=== PATIENT | female | born 1975 | race Caucasian/White ===

== ENCOUNTER 2016-12-01 21:17 | Inpatient (IN) | payer BC, OTHER ==
[~2016-12-01] VITALS: Ht 165.1 cm; Wt 60.3 kg
[2016-12-01 21:52] VITALS: BP 116/76
--- NOTE | 2016-12-01 22:01 | NUR ---
Erin brunson in [facility] - 12/01/16 at 2202 by [place] PT TAKEN TO BED 4
--- NOTE | 2016-12-01 22:02 | NUR ---
PT TAKEN TO BED 8
--- NOTE | 2016-12-01 22:07 | NUR ---
PT MOVED TO BED 3
[2016-12-01] MEDS ORDERED: NACL 0.9% 1,000 ML IV SCH (22:09)
--- NOTE | 2016-12-01 22:22 | NUR ---
PATIENT PRESENTS TO ED WITH RT SIDED FACIAL NUMBNESS . PT STATES SHE ALSO IS CURRENTLY EXPERIENCING MEDIAL ABD PAIN SINCE 1200 TODAY . DENIES N/V/D; SKIN IS PINK/WARM/DRY; AAOX4 WITH EVEN AND STEADY GAIT; LUNGS CLEAR BL; HR EVEN AND REGULAR; PT DENIES ANY FEVER, CP, SOB, OR COUGH AT THIS TIME; PATIENT STATES PAIN OF 5/10 AT THIS TIME; VSS; PATIENT POSITIONED FOR COMFORT; HOB ELEVATED; BEDRAILS UP X2; BED DOWN. ER MD MADE AWARE OF PT STATUS. AT BEDSIDE
--- NOTE | 2016-12-01 22:44 | NUR ---
PT TAKEN TO CT
[2016-12-01] MEDS ORDERED: ZOLOFT50 MG PO (22:48)
[2016-12-01] MEDS ORDERED: PEPCID20 MG PO (22:48)
--- NOTE | 2016-12-01 22:52 | NUR ---
PT RETURN FROM CT
[2016-12-02] MEDS ORDERED: HYDROmorphone 1 MG/ML AMP IVP ONE (00:35)
[2016-12-02] MEDS ORDERED: ONDANSETRON 4 MG/2 ML VIAL IVP ONE (00:35)
[2016-12-02] MEDS ORDERED: ACETAMINOPHEN 325 MG TAB PO PRN (02:45)
[2016-12-02] MEDS ORDERED: ONDANSETRON 4 MG/2 ML VIAL IVP PRN (02:45)
[2016-12-02] MEDS ORDERED: POTASSIUM CHLORIDE 10 MEQ TABER PO SCH (02:50)
--- NOTE | 2016-12-02 03:05 | NUR ---
Patient will be admitted to care of DR. PATINO. Admited to TELE. Will go to room 120A. Belongings list completed. Report to LEANDRO LYONS.
--- NOTE | 2016-12-02 03:14 | NUR ---
PT ARRIVED ON UNIT IN STABLE CONDITION. NO SOB, NO SIGNS OF DISTRESS. PT IS AOX4, AMBULATORY. IV TO LT AC 22G PATENT, ASYMPTOMATIC, INTACT, SALINE LOCKED. PLACED PT ON FALL PRECAUTIONS DUE TO C/O DIZZINESS. ORIENTED PT TO ROOM AND UNIT. AT BEDSIDE. VS STABLE ON ROOM AIR. SKIN IS INTACT. PT DENIES PAIN AT THIS TIME. PLAN OF CARE DISCUSSED WITH PT AND . SAFETY MEASURES IN PLACE. CALL LIGHT WITHIN REACH. WILL CONTINUE TO MONITOR.
--- NOTE | 2016-12-02 03:22 | NUR ---
Pt report given to LEANDRO LYONS. Transfer of care at this time.
[2016-12-02 03:51] VITALS: BP 114/63
--- NOTE | 2016-12-02 07:10 | NUR ---
ENDORSED PT IN STABLE CONDITION TO LEANDRO SMITH ALL NEEDS HAVE BEEN MET AT THIS TIME.
--- NOTE | 2016-12-02 07:40 | NUR ---
DR. PATINO AT BEDSIDE AT THIS TIME
[2016-12-02 07:55] VITALS: BP 110/67
--- NOTE | 2016-12-02 07:58 | NUR ---
RECEIVED PT LYINH IN BED Addendum: 12/02/16 at 0803 by Radha Gonzáles RN ERROR SAVANNA PAK
--- NOTE | 2016-12-02 07:59 | NUR ---
RECEIVED PT LYING IN BED PT AAO, NO C/O PAIN BUT VERBALIZED I HAVE PRESSURE ON THE BACK OF MY HEAD AND I FEEL TIRED,, NO SOB NOTED, SKIN WARM TO TOUCH RESP. EVEN AND UNLABORED, NO DISTRESS NOTED, FALL RISK, VITAL SIGN STABLE, INFORMED DR. CONTE, NEED DIET ORDER,
[2016-12-02] MEDS: SERTRALINE 50 MG TAB PO SCH (09:00)
--- NOTE | 2016-12-02 09:02 | NUR ---
TALKED TO DR. MONTIEL IF PT CAN EAT NOW PER MD KEEP PT NPO AND MAY GIVE APPLE SAUCE FOR MED, DR. FRAUSTO AT BEDSIDE AT THIS TIME
--- NOTE | 2016-12-02 09:05 | NUR ---
PATIENT HAS BEEN SCREENED AND CATEGORIZED MODERATE NUTRITION RISK. PATIENT WILL BE SEEN WITHIN 3-5 DAYS OF ADMISSION. 12/04/16-12/06/[address]
[2016-12-02] MEDS: ASPIRIN 81 MG TAB.CHEW PO SCH (09:23)
[2016-12-02] MEDS: DOCUSATE SODIUM 100 MG GELCAP PO SCH (09:23)
[2016-12-02] MEDS: ATORVASTATIN 20 MG TAB PO SCH (09:24)
[2016-12-02] MEDS: FAMOTIDINE 20 MG TAB PO SCH (09:25)
--- NOTE | 2016-12-02 10:35 | NUR ---
REPORT GIVEN TO CESAR Addendum: 12/02/16 at 1036 by Radha Gonzáles RN PT WITH PO0R APPETITE AT THIS TIME ABLE TO EAT BANANA, AND DRINK 2 CUP OF JUICE
--- NOTE | 2016-12-02 10:39 | NUR ---
RECEIVED REPORT FROM LEANDRO SMITH. PT RESTING IN BED. AAOX4. NO S/S OF ACUTE DISTRESS. IV SITE PATENT AND INTACT. NO DEFICITS NOTED ON ASSESSMENT. PT DENIES PAIN. CALL LIGHT WITHIN REACH. SAFETY MEASURES ENSURED. WILL CONTINUE TO MONITOR.
[2016-12-02] MEDS ORDERED: LORazepam 2 MG/ML VIAL IVP PRN (10:55)
--- NOTE | 2016-12-02 12:03 | NUR ---
SEIZURE PRECAUTIONS IN PLACE. PT RESTING IN BED. PT STATES PAIN IS 8/10 PRESSURE TO BACK SIDE OF HEAD. NO S/S OF ACUTE DISTRESS. WILL MEDICATE ORDERED. WILL CONTINUE OT MONITOR.
[2016-12-02] MEDS: MORPHINE SULFATE 2 MG/ML SYR IVP PRN (12:13)
--- NOTE | 2016-12-02 12:34 | NUR ---
CM NOTE INITIAL REVIEW FAXED TO [facility] / FAX# [phone], ATTN: SON #[phone]
--- NOTE | 2016-12-02 14:23 | NUR ---
PT RESTING IN BED. NO S/S OF ACUTE DISTRESS. PT DENIES PAIN. CALL LIGHT WITHIN REACH. SAFETY MEASURES ENSURED. WILL CONTINUE TO MONITOR.
[2016-12-02 16:00] VITALS: BP 110/62
--- NOTE | 2016-12-02 17:19 | NUR ---
PT RESTING IN BED. NO S/S OF ACUTE DISTRESS. PT DENIES PAIN. CALL LIGHT WITHIN REACH. WILL CONTINUE TO MONITOR.
--- NOTE | 2016-12-02 19:10 | NUR ---
RECEIVED REPORT FROM LEANDRO GUERRERO AT BEDSIDE. INITIAL ASSESSMENT COMPLETED. PT AAOX4. PT AMBULATES. PT'S SKIN INTACT. PT HAS IV TO LEFT AC G 22 SL. ORIENTED PT TO ROOM AND SURROUNDINGS AND USE OF CALL LIGHT. EXPLAINED PLAN OF CARE TO PT AND SHE VERBALIZES UNDERSTANDING. PT ON SEIZURE/SAFETY PRECAUTIONS WILL CONTINUE TO MONITOR PT.
--- NOTE | 2016-12-02 19:34 | NUR ---
ENDORSED PLAN OF CARE TO NIGHT RN
--- NOTE | 2016-12-02 20:20 | NUR ---
PT HAS SCDS ON. CALL LIGHT WITHIN REACH, WILL CONTINUE TO MONITOR PT.
--- NOTE | 2016-12-02 21:20 | NUR ---
PT REQUESTING SNACK AND A CLEAN GOWN. PROVIDED WITH PT NEEDS. WILL CONTINUE TO MONITOR PT.
--- NOTE | 2016-12-02 23:05 | NUR ---
PT SLEEPING AT THIS TIME, NO SIGNS OF DISTRESS NOTED. WILL CONTINUE TO MONITOR PT.
[2016-12-03] VITALS: BP 112/72
--- NOTE | 2016-12-03 00:45 | NUR ---
PT AMBULATED TO THE RESTROOM WITH STEADY GAIT. PT DENIES ANY PAIN. WILL CONTINUE TO MONITOR PT.
--- NOTE | 2016-12-03 03:34 | NUR ---
PT SLEEPING AT THIS TIME. NO SIGNS OF DISTRESS/DISCOMFORT AT THIS TIME, WILL CONTINUE TO MONITOR PT.
--- NOTE | 2016-12-03 05:40 | NUR ---
PT COMPLAINING OF HEADACHE 05/13. VS: BP 132/75, HR 79, 02 SAT 99%, T 98.5, R 20. WILL MEDICATE ORDERED.
[2016-12-03] MEDS: MORPHINE SULFATE 2 MG/ML SYR IVP PRN (05:44)
--- NOTE | 2016-12-03 07:10 | NUR ---
ENDORSED PT IN STABLE CONDITION TO LEANDRO ALONSO FOR CONTINUITY OF CARE.
--- NOTE | 2016-12-03 07:11 | NUR ---
ASSUMED CONTINUITY OF CARE. NO SIGNS AND SYMPTOMS OF ACUTE DISTRESS NOTICED. INITIAL ASSESSMENT DONE. PT. -TREVIN ON BEDSIDE. EXPLAINED DIAGNOSIS, PLAN OF CARE, PAIN MANAGEMENT TEACHING, USE OF CALL LIGHT/BED/TV/BATHROOM. VERBALIZED UNDERSTANDING. CALL LIGHT WITHIN REACH
[2016-12-03 08:00] VITALS: BP 100/58
[2016-12-03] MEDS ORDERED: APAP/BUTAL/CAFF 325/50/40 MG 1 TAB PO PRN (08:25)
[2016-12-03] MEDS: ASPIRIN 81 MG TAB.CHEW PO SCH (08:59)
[2016-12-03] MEDS: DOCUSATE SODIUM 100 MG GELCAP PO SCH (08:59)
[2016-12-03] MEDS: FAMOTIDINE 20 MG TAB PO SCH (08:59)
[2016-12-03] MEDS: ATORVASTATIN 20 MG TAB PO SCH (08:59)
[2016-12-03] MEDS: SERTRALINE 50 MG TAB PO SCH (09:00)
--- NOTE | 2016-12-03 11:00 | NUR ---
EXPLAINED PT. AND PT. -TREVIN ABOUT TIA TEACHING. PT. AND PT. -TREVIN VERBALIZED UNDERSTANDING.
[2016-12-03 11:39] VITALS: BP 114/60
[2016-12-03] MEDS: HYDROcodone/APAP 7.5/325 MG 1 TAB PO PRN ×2 (11:39→19:32)
--- NOTE | 2016-12-03 11:45 | NUR ---
CM NOTE CONCURRENT REVIEW FAXED TO [facility] / FAX# [phone], ATTN: SON #[phone]
--- NOTE | 2016-12-03 11:48 | NUR ---
TOPHER Enriquez/ [facility] [place] REF[facility] FOR OUTPATIENT MENTAL HEALTH. Addendum: 12/03/16 at 1249 by Azar Magallon RN PER SON, OUTPATIENT REFERRAL TO [facility] - [phone] Addendum: 12/03/16 at 1410 by Azar Magallon RN information has been included in discharge summary.
[2016-12-03 16:00] VITALS: BP 109/72
--- NOTE | 2016-12-03 19:10 | NUR ---
RECEIVED REPORT FROM LEANDRO ALONSO AT BEDSIDE. INITIAL ASSESSMENT COMPLETED. PT AAOX4. PT AMBULATES. PT'S SKIN INTACT. PT HAS IV TO LEFT AC G 22 SL. ASYMPTOMATIC, PATENT AND INTACT. ORIENTED PT TO ROOM AND SURROUNDINGS AND USE OF CALL LIGHT. EXPLAINED PLAN OF CARE TO PT AND SHE VERBALIZES UNDERSTANDING. SISTER AT BEDSIDE. VS STABLE, PT COMPLAINING OF HEADACHE /. WILL MEDICATE ORDERED. PT ON SEIZURE/SAFETY PRECAUTIONS WILL CONTINUE TO MONITOR PT.
--- NOTE | 2016-12-03 19:12 | NUR ---
BEDSIDE REPORT GIVEN TO NATASHA BURGESS. IN STABLE CONDITION.
--- NOTE | 2016-12-03 19:30 | NUR ---
PT COMPLAINING OF HEADACHE 03/13. PT REQUESTING NORCO. VS WITHIN NORMAL RANGE. WILL MEDICATE ORDERED.
--- NOTE | 2016-12-03 21:40 | NUR ---
PT AMBULATED TO THE RESTROOM WITH STEADY GAIT. PT REQUESTING A CLEAN GOWN. WILL PROVIDE PT'S NEEDS AND WILL CONTINUE TO MONITOR PT.
--- NOTE | 2016-12-03 23:37 | NUR ---
CHECKED ON PT. PT'S VS STABLE. NO SIGNS OF DISTRESS OR DISCOMFORT NOTED. WILL CONTINUE TO MONITOR PT.
[2016-12-04] VITALS: BP 128/77
--- NOTE | 2016-12-04 01:03 | NUR ---
PT STATED THAT SHE HAS TROUBLE FALLING ASLEEP. VS ARE STABLE, WILL CONTINUE TO MONITOR PT.
--- NOTE | 2016-12-04 02:34 | NUR ---
PT STATED THAT SHE IS THIRSTY, WILL PROVIDE WITH WATER. WILL CONTINUE TO MONITOR PT.
--- NOTE | 2016-12-04 04:36 | NUR ---
PT AMBULATED TO THE RESTROOM WITH STEADY GAIT. NO SIGNS OF DISCOMFORT NOTED. PT STATED THAT SHE FEELS ANXIOUS AT TIMES. SHE STATED THAT SHE WENT TO [facility] FOR [facility] AND SINCE SHE GOT IN THE PLANE THAT TIME, SHE HAS BEEN FEELING EPISODES OF ANXIETY. WILL CONTINUE TO MONITOR PT.
--- NOTE | 2016-12-04 05:30 | NUR ---
PT VERY TALKATIVE AT THIS MOMENT. SHE IS TALKING ABOUT HER SONS. PT SEEMS/APPEARS TO BE FEELING LONELY. WILL CONTINUE TO MONITOR PT.
--- NOTE | 2016-12-04 07:15 | NUR ---
ENDORSED PT IN STABLE CONDITION TO LEANDRO ROMERO FOR CONTINUITY OF CARE.
--- NOTE | 2016-12-04 07:16 | NUR ---
RECEIVED PT FROM THE NIGHTSHIFT NURSE AT BEDSIDE. PT IS AWAKE AND ORIENTED. PT IS A 41 Y/O FEMALE HERE FOR TIA. SHE HAS A TOWEL ON HER R SIDE OF FACE. SHE C/O A HEADACHE. WILL BE BACK TO DO HER V/S. NOTED THE IV ON HE L AC 22G SL. NO FLUIDS AT THIS TIME.
[2016-12-04 08:00] VITALS: BP 107/69
--- NOTE | 2016-12-04 08:05 | NUR ---
V/S WITHIN NORMAL RANGE. SPOUSE AT BEDSIDE. PT IS STILL C/O OF PAIN. WILL BE BACK WITH MORNING MORNING MEDS.
[2016-12-04] MEDS ORDERED: KETOROLAC 30 MG/ML VIAL IVP SCH (08:30)
[2016-12-04] MEDS: ASPIRIN 81 MG TAB.CHEW PO SCH (08:33)
[2016-12-04] MEDS: FAMOTIDINE 20 MG TAB PO SCH (08:33)
[2016-12-04] MEDS: DOCUSATE SODIUM 100 MG GELCAP PO SCH (08:34)
[2016-12-04] MEDS: ATORVASTATIN 20 MG TAB PO SCH (08:34)
[2016-12-04] MEDS: SERTRALINE 50 MG TAB PO SCH (08:34)
--- NOTE | 2016-12-04 08:35 | NUR ---
PT TOLERATED HER MEDS WELL. GAVE HER TORADOL ORDERED. PT STATED SHE IS FEELING BETTER ALREADY. WILL CONTINUE TO MONITOR PT.
--- NOTE | 2016-12-04 10:20 | NUR ---
GUCCI THE S/S STATED THAT SHE IS TO FOLLOW UP WITH [facility]. WILL RELAY THE MESSAGE TO PT WITH DISCHARGE INSTRUCTIONS.
[2016-12-04] MEDS ORDERED: KETOROLAC 10 MG TAB PO PRN (10:35)
[2016-12-04] MEDS ORDERED: ASPIRIN ADULT L81 M1 PO (10:40)
[2016-12-04] MEDS ORDERED: ATORVASTATIN CA20 MG PO (10:40)
[2016-12-04] MEDS ORDERED: KETOROLAC TROME10 M1 PO (10:46)
--- NOTE | 2016-12-04 12:15 | NUR ---
GAVE PT D/C INSTRUCTIONS AND GAVE DISCHARGE PACKET TO PT AND SPOUSE. GAVE PRESCRIPTIONS. GAVE EDUCATION ON TIA, STROKE PROVENTION, HEADACHES, AND THE IMPORTANCE OF F/U WITH MD. PT VERBALIZED UNDERSTANDING. I ANSWERED ALL QUESTIONS. D/C'D IV, CANNULA INTACT. NOTED NO BLEEDING. REMOVED ALL WRIST BANDS. PT SIGNED ALL NEEDED DOCUMENTS. WILL CHANGED INTO HER OWN CLOTHES, WILL GATHER ALL PERSONAL BELONGINGS. WILL LET ME KNOW WHEN SHE IS READY TO LEAVE.
--- NOTE | 2016-12-04 12:50 | NUR ---
RETA PUSHED PT OUT IN A WHEELCHAIR WITH SPOUSE AT HER SIDE. HE HAS ALL HER PERSONAL BELONGINGS. PT IS STABLE, HAPPY TO BE GOING HOME. REMINDED THEM TO TAKE HER MEDS AND GO F/U THE
== END 2016-12-04 12:50 | disposition home or self-care (01) | DRG 74 ==
LOC: MED 21:17 → MTU 12-02 02:21
PROVIDERS: ADMIT Family Medicine; ATTEND Family Medicine
DX: G90.9 Disorder of the autonomic nervous system, unspecified (principal); E87.6 Hypokalemia; E02 Subclinical iodine-deficiency hypothyroidism; F43.23 Adjustment disorder with mixed anxiety and depressed mood; G44.209 Tension-type headache, unspecified, not intractable; E87.8 Other disorders of electrolyte and fluid balance, not elsewhere classified; E80.6 Other disorders of bilirubin metabolism; E83.51 Hypocalcemia; K21.9 Gastro-esophageal reflux disease without esophagitis; Z79.899 Other long term (current) drug therapy